=== PATIENT | male | born 1935 | race Caucasian/White ===

== ENCOUNTER → 2020-01-12 | Outpatient (CLI) | payer OTHER ==
[~2020-01-12] MED LIST: NOHOMEMEDICATIONS
== END ==
LOC: M.RAD 11:03
PROVIDERS: ATTEND Internal Medicine
DX: J44.9 Chronic obstructive pulmonary disease, unspecified (principal)

== ENCOUNTER 2020-04-03 09:40 | Emergency (ER) | payer OTHER ==
[~2020-04-03] VITALS: Ht 182.9 cm; Wt 61.2 kg
[2020-04-03] MEDS ORDERED: NORCO 5-325 TA1 EAC2 PO (10:41)
[2020-04-03 11:13] VITALS: BP 178/93
== END 2020-04-03 11:14 | disposition home or self-care (01) ==
LOC: M.ERS 09:40
DX: S63.502A Unspecified sprain of left wrist, initial encounter (principal); F17.210 Nicotine dependence, cigarettes, uncomplicated; Z88.0 Allergy status to penicillin; W18.39XA Other fall on same level, initial encounter; Y93.89 Activity, other specified; Y92.89 Other specified places as the place of occurrence of the external cause; Y99.8 Other external cause status

== ENCOUNTER 2021-04-05 10:25 | Emergency (ER) | payer OTHER ==
[~2021-04-05] VITALS: Ht 182.9 cm; Wt 90.7 kg
[~2021-04-05 10:25] MED LIST changes: +NORCO 5-325 TA1 EAC2 PO
[2021-04-05 13:50] VITALS: BP 0/0
== END 2021-04-05 13:52 ==
LOC: M.ERS 10:25
DX: I46.9 Cardiac arrest, cause unspecified (principal); Z20.822 Contact with and (suspected) exposure to COVID-19; F17.210 Nicotine dependence, cigarettes, uncomplicated; Z88.0 Allergy status to penicillin; Z98.890 Other specified postprocedural states